=== PATIENT | male | born 1965 | race Caucasian/White ===

== ENCOUNTER 2020-11-21 16:59 | Emergency (ER) | payer OTHER, BC ==
[~2020-11-21] VITALS: Ht 175.3 cm; Wt 79.5 kg
[2020-11-21] MEDS ORDERED: LITH300C PO (17:12)
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
[2020-11-21 22:40] VITALS: BP 146/83
== END 2020-11-21 23:08 | disposition home or self-care (01) ==
LOC: M ED 16:59
DX: S09.90XA Unspecified injury of head, initial encounter (principal); M54.2 Cervicalgia; M25.511 Pain in right shoulder; T14.8XXA Other injury of unspecified body region, initial encounter; V43.62XA Car passenger injured in collision with other type car in traffic accident, initial encounter; Y92.9 Unspecified place or not applicable; Y93.9 Activity, unspecified; Y99.9 Unspecified external cause status; F31.9 Bipolar disorder, unspecified